=== PATIENT | female | born 1950 | race Caucasian/White ===

== ENCOUNTER → 2018-06-23 12:11 | Outpatient (BNVA) | payer MEDICARE, OTHER, SELFPAY | PROVIDERS: PCP Family Medicine; Visit Provider Psychiatry & Neurology Neurology | DX: M54.17 Radiculopathy, lumbosacral region (principal); M54.5 Low back pain; G89.29 Other chronic pain; I12.9 Hypertensive chronic kidney disease with stage 1 through stage 4 chronic kidney disease, or unspecified chronic kidney disease; E11.22 Type 2 diabetes mellitus with diabetic chronic kidney disease; N18.9 Chronic kidney disease, unspecified | CPT/HCPCS: 95908; 99204 ==

== ENCOUNTER → 2022-06-12 08:41 | Outpatient (BNVA) | payer MEDICARE, OTHER, SELFPAY | PROVIDERS: PCP Family Medicine; Referring Provider Neurological Surgery; Visit Provider Psychiatry & Neurology Neurology | DX: M54.17 Radiculopathy, lumbosacral region (principal); G89.29 Other chronic pain | CPT/HCPCS: 95885; 95909; 99204 ==